=== PATIENT | female | born 1975 | race African-American/Black ===

== ENCOUNTER 2016-05-14 16:00 | Emergency (ER) | payer OTHER ==
[2016-05-14] MEDS ORDERED: IBUPROFEN 600 MG TABLET PO ONE (16:33)
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
[2016-05-14 19:08] VITALS: BP 157/103
== END 2016-05-14 19:08 | disposition home or self-care (01) ==
LOC: ER 16:00
DX: M54.2 Cervicalgia (principal); M54.6 Pain in thoracic spine; M54.9 Dorsalgia, unspecified; F17.210 Nicotine dependence, cigarettes, uncomplicated; V89.2XXA Person injured in unspecified motor-vehicle accident, traffic, initial encounter
CPT/HCPCS: 72050; 72070; 99284

== ENCOUNTER 2016-05-16 10:00 | Emergency (ER) | payer OTHER ==
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
[2016-05-16] MEDS ORDERED: HYDROCHLOROTHIAZIDE 12.5 MG CAPSULE PO ONE (11:17)
[2016-05-16] MEDS ORDERED: IBUPROFEN 600 MG TABLET PO ONE (11:17)
[2016-05-16 11:22] VITALS: BP 143/100
== END 2016-05-16 11:32 | disposition home or self-care (01) ==
LOC: ER 10:00
DX: M54.6 Pain in thoracic spine (principal); R51 Headache; I10 Essential (primary) hypertension; R52 Pain, unspecified; M54.9 Dorsalgia, unspecified; F17.210 Nicotine dependence, cigarettes, uncomplicated
CPT/HCPCS: 99283

== ENCOUNTER 2016-09-16 04:35 | Emergency (ER) | payer OTHER ==
[2016-09-16 04:48] VITALS: BP 163/115
[2016-09-16] MEDS ORDERED: ACETAMINOPHEN 325 MG TABLET PO ONE ×2 (05:01→07:09)
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
--- NOTE | 2016-09-16 05:57 | RADIOLOGY REPORT (SQ) ---
EXAM DESCRIPTION: CT HEAD WITHOUT COMPLETED DATE/TIME: 09/16/2016 5:40 am REASON FOR STUDY: ETOH, head injury COMPARISON: None. TECHNIQUE: Axial images acquired through the brain without intravenous contrast. Images reviewed wi th bone, brain and subdural windows. Images stored on PACS. All CT scanners at this facility use dose modulation, iterative reconstruction, and/or weight based d osing when appropriate to reduce radiation dose to as low as reasonably achievable (ALARA). [facility]: Dose Right [facility]: CareDose [facility]: Dose Right [facility]: Teradose 4D [facility]: LeTV RADIATION DOSE: 64.61 mGy. LIMITATIONS: None. FINDINGS: VENTRICLES: Normal size and contour. CEREBRUM: No masses. No hemorrhage. No midline shift. Normal suarez/white matter differentiation. N o evidence for acute infarction. CEREBELLUM: No masses. No hemorrhage. No alteration of density. No evidence for acute infarction. EXTRAAXIAL SPACES: No fluid collections. No masses. ORBITS AND GLOBE: No intra- or extraconal masses. Normal contour of globe without masses. CALVARIUM: No fracture. PARANASAL SINUSES: No fluid or mucosal thickening. Impaction deformity of the nasal bones of unknown chronicity. SOFT TISSUES: Mild left anterior parietal scalp swelling. OTHER: No other significant finding. IMPRESSION: No acute intracranial findings. Scalp swelling. Impaction deformity of the nasal bones of unknown chronicity. TECHNICAL DOCUMENTATION: JOB ID: [id number] Quality ID # [id number]: Final reports with documentation of one or more dose reduction techniques (e.g., Au tomated exposure control, adjustment of the mA and/or kV according to patient size, use of iterative reconstruction technique) 2010 [employer]- All Rights Reserved
--- NOTE | 2016-09-16 06:06 | RADIOLOGY REPORT (SQ) ---
EXAM DESCRIPTION: CT CERVICAL SPINE WITHOUT COMPLETED DATE/TIME: 09/16/2016 5:43 am REASON FOR STUDY: ETOH head injury COMPARISON: CR 05/14/2016. TECHNIQUE: Axial images acquired through the cervical spine without intravenous contrast. Images re viewed with lung, soft tissue and bone windows. Reconstructed coronal and sagittal MPR images review ed. Images stored on PACS. All CT scanners at this facility use dose modulation, iterative reconstruction, and/or weight based d osing when appropriate to reduce radiation dose to as low as reasonably achievable (ALARA). [facility]: Dose Right [facility]: CareDose [facility]: Dose Right [facility]: Teradose 4D [facility]: Aviary RADIATION DOSE: 16.86 mGy. LIMITATIONS: None. FINDINGS: ALIGNMENT: Anatomic. MINERALIZATION: Normal. VERTEBRAL BODIES: No fractures or dislocation. Chronic 0.3 cm fragmentation of the odontoid and atla ntoaxial joint. DISCS: Small C5-C6 desiccated disc bulge. FACETS, LATERAL MASSES, POSTERIOR ELEMENTS: No fractures. No dislocation. No acute findings. HARDWARE: None in the spine. VISUALIZED RIBS: No fractures. LUNG APICES AND SOFT TISSUES: No significant or acute findings. OTHER: No other significant finding. IMPRESSION: No acute findings. Small chronic fragmentation at the atlantoaxial joint may indicate f ragmented osteoarthritis and/or prior injury. TECHNICAL DOCUMENTATION: JOB ID: [id number] Quality ID # [id number]: Final reports with documentation of one or more dose reduction techniques (e.g., Au tomated exposure control, adjustment of the mA and/or kV according to patient size, use of iterative reconstruction technique) 2010 [employer]- All Rights Reserved
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
== END 2016-09-16 07:25 | disposition home or self-care (01) ==
LOC: ER 04:35
DX: S00.90XA Unspecified superficial injury of unspecified part of head, initial encounter (principal); S02.2XXA Fracture of nasal bones, initial encounter for closed fracture; R51 Headache; I10 Essential (primary) hypertension; Y09 Assault by unspecified means
CPT/HCPCS: 99283; 70450; 72125; L0120 ×2

== ENCOUNTER 2019-03-01 09:38 | Emergency (ER) | payer SELFPAY ==
--- NOTE | 2019-03-01 10:14 | RADIOLOGY REPORT (SQ) ---
EXAM DESCRIPTION: ANKLE LEFT COMPLETE COMPLETED DATE/TIME: 03/01/2019 10:03 am REASON FOR STUDY: fall injury COMPARISON: None. NUMBER OF VIEWS: Three views. TECHNIQUE: AP, lateral, and oblique radiographic images acquired of the left ankle. LIMITATIONS: None. FINDINGS: MINERALIZATION: Normal. BONES: Obliquely oriented distal fibular metadiaphyseal fracture extending to the level of the ankle mortise. No significant angulation or displacement. Corticated ossific density inferior to the late ral malleolus, likely related to remote injury. JOINTS: No dislocation. SOFT TISSUES: Soft tissue swelling about the ankle, greatest laterally. No radiopaque foreign body. OTHER: No other significant finding. IMPRESSION: Obliquely oriented distal fibular metadiaphyseal fracture extending to the level of the talar dome (Heath B). No significant angulation or displacement. Associated soft tissue swelling ab out the ankle. TECHNICAL DOCUMENTATION: JOB ID: [id number] [employer]- All Rights Reserved Reading location - IP/workstation name: [email or web address]
[2019-03-01] MEDS ORDERED: IBUPROFEN 600 MG TABLET PO ONE (10:34)
[2019-03-01] MEDS ORDERED: OXYCODONE-ACETAMINOPHEN 5-325 MG TABLET PO ONE (10:34)
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
[2019-03-01] MEDS ORDERED: HYDROCODONE/ACETAMINOPHEN 5-325 MG (6 TAB/ER DISP) PO PRN (11:12)
[2019-03-01 11:13] VITALS: BP 132/99
== END 2019-03-01 11:24 | disposition home or self-care (01) ==
LOC: ER 09:38
PROC: 2W3RX1Z Immobilization of Left Lower Leg using Splint (ICD-10-PCS; principal; 2019-03-01)
DX: S82.892A Other fracture of left lower leg, initial encounter for closed fracture (principal); M25.572 Pain in left ankle and joints of left foot; X50.1XXA Overexertion from prolonged static or awkward postures, initial encounter; Z79.899 Other long term (current) drug therapy; F17.200 Nicotine dependence, unspecified, uncomplicated; I10 Essential (primary) hypertension
CPT/HCPCS: 99283

== ENCOUNTER 2019-03-10 13:45 | Emergency (ER) | payer SELFPAY ==
[2019-03-10] MEDS ORDERED: IBUPROFEN 600 MG TABLET PO ONE (14:26)
--- NOTE | 2019-03-10 14:51 | RADIOLOGY REPORT (SQ) ---
EXAM DESCRIPTION: ANKLE LEFT COMPLETE COMPLETED DATE/TIME: 03/10/2019 2:39 pm REASON FOR STUDY: pain; eval previous fracture COMPARISON: None. NUMBER OF VIEWS: Three views. TECHNIQUE: AP, lateral, and oblique radiographic images acquired of the left ankle. LIMITATIONS: None. FINDINGS: MINERALIZATION: Normal. BONES: Acute displaced oblique fracture of the distal fibula. There is no other fracture. The the a nkle mortise and talar dome are intact. SOFT TISSUES: Soft tissue swelling centered around the fracture. OTHER: No other finding. IMPRESSION: Acute displaced oblique fracture of the distal fibula. TECHNICAL DOCUMENTATION: JOB ID: [id number] [employer]- All Rights Reserved Reading location - IP/workstation name: [email or web address]
--- NOTE | 2019-03-10 15:18 | ER Document Report ---
HPI - HPI Time Seen by Provider: 03/10/19 14:21 Pain Level: 3 Context: Patient is a 43-year-old female who presents to the emergency department with a chief complaint of left ankle pain. She was diagnosed with an ankle fracture last week. Patient states that she needed to take the splint off, as she was having some extra swelling. She was only taking Tylenol for her pain. Was not taking ibuprofen. Patient took the splint off and also walked on it. She has not followed up with orthopedics. - REPRODUCTIVE Reproductive: DENIES: : Past Medical History - Social History Smoking Status: Current Every Day Smoker Frequency of alcohol use: Social Drug Abuse: None Family History: Reviewed & Not Pertinent Patient has suicidal ideation: No Patient has homicidal ideation: No - Past Medical History Cardiac Medical History: Reports: Hx Hypertension - unmedicated Renal/ Medical History: Reports: Hx Ectopic . Denies: Hx Peritoneal Dialysis Musculoskeletal Medical History: Reports Hx Musculoskeletal Deformity, Reports Hx Musculoskeletal Trauma Traumatic Medical History: Reports: Hx Fractures - left wrist Past Surgical History: Reports: Hx Abdominal Surgery - Tubal x 2, Hx Dilation and Curettage, Hx Gynecologic Surgery - ectopic x 2 - Immunizations Immunizations up to date: Yes Hx Diphtheria, Pertussis, Tetanus Vaccination: Yes - 12/20/2010 Vertical Provider Document - CONSTITUTIONAL Agree With Documented VS: Yes Exam Limitations: No Limitations General Appearance: No Apparent Distress - INFECTION CONTROL TRAVEL OUTSIDE OF THE [place] IN LAST 30 DAYS: No - HEENT HEENT: Atraumatic, Normocephalic, PERRLA - NECK Neck: Normal Inspection - RESPIRATORY Respiratory: No Respiratory Distress - CARDIOVASCULAR Cardiovascular: Regular Rate, Regular Rhythm Pulses: Normal: Posterior tibial, Dorsalis pedis - MUSCULOSKELETAL/EXTREMETIES Musculoskeletal/Extremeties: Tender - left lateral ankle, No Edema - left ankle. negative: FROM - decreased to left ankle, Eccymosis - NEURO Level of Consciousness: Awake, Alert, Appropriate Motor/Sensory: No Sensory Deficit - DERM Integumentary: Warm, Dry, No Rash Course - Re-evaluation Re-evalutation: 03/10/19 The patient's ankle fracture is now displaced. Her other x-ray did not show any displacement. Capillary refill less than 3 seconds. Dorsalis pedis and posterior tibial pulses 2+. The patient will be placed in another splint. I educated the patient on how important it is to not bear weight on her foot. She will also be given crutches, as her crutches are at home. Follow-up precautions were given. Verbal discharge instructions were given to the patient. They verbalized understanding. They are stable for discharge. - Vital Signs Vital signs: Temp Pulse Resp BP Pulse Ox 97.3 F 120 H 18 141/112 H 99 03/10/19 13:49 03/10/19 13:49 03/10/19 13:49 03/10/19 13:49 03/10/19 13:49 Procedures - Immobilization Left Leg Pre-Proc Neuro Vasc Exam: Normal Immobilizer type: Crutches, Short Leg Posterior Performed by: PCT Post-Proc Neuro Vasc Exam: Normal, Unchanged from pre-exam Alignment checked and good: Yes Discharge - Discharge Clinical Impression: Fracture of distal fibula Qualifiers: Encounter type: initial encounter Fracture type: closed Fracture morphology: unspecified fracture morphology Laterality: left Qualified Code(s): S82.832A - Other fracture of upper and lower end of left fibula, initial encounter for closed fracture Condition: Stable Disposition: HOME, SELF-CARE Additional Instructions: You were seen today in the emergency department for left ankle swelling and pain. You stop fracture there. You are being placed in a splint. Take ibuprofen 600 mg every 6 hours for your pain. Please follow-up with orthopedics in regards to this visit. Please do not walk on your leg anymore, as this will only make things worse. Use your crutches. Keep the splint on until you are seen by orthopedics. As for your blood pressure, you it is most likely elevated due to your pain. Please follow-up with 1 of the clinics below. See if you able to qualify for further care. Forms: Elevated Blood Pressure Referrals: RADHA FARIA MD [ACTIVE PROVISIONAL STAFF] - Follow up in 3-[address] [facility] [Provider Group] - Follow up as needed [facility] [Provider Group] - Follow up as needed
[2019-03-10 16:05] VITALS: BP 136/89
== END 2019-03-10 16:08 | disposition home or self-care (01) ==
LOC: ER 13:45
DX: S82.832A Other fracture of upper and lower end of left fibula, initial encounter for closed fracture (principal); X58.XXXA Exposure to other specified factors, initial encounter; F17.200 Nicotine dependence, unspecified, uncomplicated; I10 Essential (primary) hypertension
CPT/HCPCS: 99283

== ENCOUNTER 2019-11-04 16:04 | Emergency (ER) | payer SELFPAY ==
[2019-11-04 16:13] VITALS: BP 132/87
--- NOTE | 2019-11-04 17:06 | ER Document Report ---
ED Medical Screen (RME) - General Chief Complaint: Blood Pressure Problem Stated Complaint: DIZZINESS, BLOOD PRESSURE Time Seen by Provider: 11/04/19 17:03 Mode of Arrival: Ambulatory Information source: Patient Notes: 43-year-old female presented to ED for high blood pressure. She states at work her blood pressure was triple over triples I sent her to the emergency room. She states she has no history of high blood pressure but now she has some dizziness and blurred vision. She states she does smoke about 10 cigarettes a day drinks socially and does not use any drugs. She states she has no past medical history. I offered to get labs and a work-up started on her but she refused stated she was tired and did not want to stay here. I explained to her that the risk of her leaving includes everything from stroke and . She stated she was not going to to stay. I told her that leaving with elevated blood pressure could cause . She states she has had a little discomfort in her chest but she still does not want to stay. Did tell her she had only sent sign out AMA in order to leave. Patient verbalized understanding and agreement with this. TRAVEL OUTSIDE OF THE [place] IN LAST 30 DAYS: No - Related Data Allergies/Adverse Reactions: No Known Allergies Allergy (Verified 03/10/19 14:03) Past Medical History - Past Medical History Cardiac Medical History: Reports: Hx Hypertension - unmedicated Renal/ Medical History: Reports: Hx Ectopic . Denies: Hx Peritoneal Dialysis Musculoskeltal Medical History: Reports Hx Musculoskeletal Deformity, Reports Hx Musculoskeletal Trauma Traumatic Medical History: Reports: Hx Fractures - left wrist Past Surgical History: Reports: Hx Abdominal Surgery - Tubal x 2, Hx Dilation and Curettage, Hx Gynecologic Surgery - ectopic x 2 - Immunizations Immunizations up to date: Yes Hx Diphtheria, Pertussis, Tetanus Vaccination: Yes - 12/20/2010 Physical Exam - Vital signs Vitals: Temp Pulse Resp BP Pulse Ox 97.8 F 102 H 20 132/87 H 96 11/04/19 16:11 11/04/19 16:11 11/04/19 16:11 11/04/19 16:11 11/04/19 16:11 Course - Vital Signs Vital signs: Temp Pulse Resp BP Pulse Ox 97.8 F 102 H 20 132/87 H 96 11/04/19 16:11 11/04/19 16:11 11/04/19 16:11 11/04/19 16:11 11/04/19 16:11
== END 2019-11-04 17:09 | disposition left against medical advice (07) ==
LOC: ER 16:04
DX: R42 Dizziness and giddiness (principal); H53.8 Other visual disturbances; I10 Essential (primary) hypertension
CPT/HCPCS: 99281